=== PATIENT | male | born 1975 | race Caucasian/White ===

== ENCOUNTER 2024-10-05 01:49 | Emergency (ER) | payer BC ==
[~2024-10-05] VITALS: Ht 198.1 cm; Wt 110.0 kg
[2024-10-05 01:58] VITALS: BP 123/78; PULSE 110; RESP 18; TEMP 36.7; O2SAT 99
[2024-10-05 02:03] VITALS: O2SAT 99
== END 2024-10-05 04:20 | disposition home or self-care (01) ==
LOC: ER 02:21
DX: S89.92XA Unspecified injury of left lower leg, initial encounter (principal); Q74.1 Congenital malformation of knee; Z94.0 Kidney transplant status; X58.XXXA Exposure to other specified factors, initial encounter; Y93.89 Activity, other specified; Y92.89 Other specified places as the place of occurrence of the external cause; Y99.8 Other external cause status
CPT/HCPCS: 29505; 73560; 99283